=== PATIENT | female | born 1980 | race Caucasian/White ===

== ENCOUNTER 2016-11-27 02:03 | Emergency (ER) | payer OTHER ==
[2016-11-27 02:11] VITALS: RESP 16; TEMP 99
[2016-11-27] MEDS ORDERED: IBUPROFEN 200 MG TAB PO ONE (02:40)
--- NOTE | 2016-11-27 03:02 | EDPHY ---
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 Patient states that she was injured by a resident wall providing care there. She states the resident keep tear, cyst then stopped on her left foot. She then states that she fell onto the bed and striking her foot on the bed frame. She has pain in the dorsum of her foot. She is ambulating with discomfort. No prior injuries. She states she was also struck in the head and no loss of consciousness and denies headache at this time. No trunk pain or injury. There are no breaks in the skin. ROS: 10 point Review of Systems is negative except as noted in the HPI. Physical exam: Gen: Awake, Alert, No Distress HEENT: Atraumatic Eyes: PERRLA, EOMI Mouth: Moist mucosa Neck: Supple, no JVD Chest: nontender, lungs clear to auscultation Heart: S1, S2 normal, no murmur Abd: Soft, non-tender, no guarding Back: no CVA tenderness, no midline tenderness Ext: She has mild swelling with tenderness in the dorsum of her midfoot. There is no bony step-offs or crepitus. She has full range of motion of her ankle without pain. There is no erythema. Skin: no rash Neuro: CN II-XII intact, Sensation grossly intact, Strength 5/5 in bilateral upper and lower extremities ED Course: Left foot x-ray is negative per my interpretation. General Time Seen by Provider: 11/27/16 02:48 Initial Vital Signs: Initial Vital Signs Temperature (C) 37.2 C 11/27/16 02:08 Heart Rate 97 11/27/16 02:08 Respiratory Rate 16 11/27/16 02:08 Blood Pressure 157/107 H 11/27/16 02:08 O2 Sat (%) 95 11/27/16 02:08 O2 Delivery Mode Room Air Allergies/Adverse Reactions: fish derived [Fish derived] Allergy (Severe, Verified 11/27/16 02:07) Rash hydrocodone bitartrate [From Vicodin] Allergy (Severe, Verified 11/27/16 02:07) Hives Sulfa (Sulfonamide Antibiotics) Allergy (Severe, Verified 11/27/16 02:07) THROAT SWELLS codeine [Codeine] Allergy (Intermediate, Verified 11/27/16 02:07) Hives latex [Latex] Allergy (Intermediate, Verified 11/27/16 02:07) Rash Home Medications: Medication Instructions Recorded Albuterol 11/27/16 Ativan 11/27/16 Flexeril 11/27/16 Zoloft 100mg (*) 11/27/16 traZODone 11/27/16 Departure - Departure Disposition: Home, Routine, Self-Care Clinical Impression: Contusion of foot Condition: Good Instructions: Foot Contusion (ED) Additional Instructions: Follow up with workman's Comp in 2-3 days for re-evaluation. You may take ibuprofen or acetaminophen for pain. Referrals: IN STATE,. [Primary Care Provider] - As per Instructions Work Comp Ref/Restrictions [Outside] - As per Instructions
[2016-11-27 03:19] VITALS: BP 130/92; PULSE 85; O2SAT 97
--- NOTE | 2016-11-27 08:24 | DX ---
Left foot - 3 views dated November 27, 2016 Indication: Pain. Findings: The normally mineralized bones are anatomically aligned. No acute fracture. Minimal oste oarthritis is present at the first metatarsophalangeal joint. Moderate plantar spur. Impression: Negative. No acute fracture.
== END 2016-11-27 03:20 | disposition home or self-care (01) ==
DX: S90.32XA Contusion of left foot, initial encounter (principal); Z91.040 Latex allergy status; W06.XXXA Fall from bed, initial encounter; Y92.69 Other specified industrial and construction area as the place of occurrence of the external cause; Y99.0 Civilian activity done for income or pay; Y93.89 Activity, other specified

== ENCOUNTER 2017-09-18 12:16 | Emergency (ER) | payer OTHER ==
[2017-09-18 12:26] VITALS: TEMP 98.8
--- NOTE | 2017-09-18 13:45 | EDPHY ---
H & P Time Seen by Provider: 09/18/17 12:57 HPI/ROS: CHIEF COMPLAINT: Allergic reaction HISTORY OF PRESENT ILLNESS: Patient is a 37-year-old female who presents emergency department after having allergic reaction to the flu shot. She received a flu shot in the left arm while at work at [employer]. This occurred approximately 11:00 a.m.. Roughly 1 hour later she developed heat and swelling around the flu shot location. She then noticed a rash across her chest. She developed significant highs. She felt tingling in her lips and mild chest discomfort. She was treated at the nurse facility with Claritin and Benadryl. The patient has a personal EpiPen which 911 directed her to use. After receiving these medications patient felt much better. At this time she has no chest pain or shortness of breath. She states her rash is drastically improved. She has no facial swelling or throat swelling. REVIEW OF SYSTEMS: My complete review of systems is negative except as mentioned in the HPI. Past Medical/Surgical History: Includes asthma, anxiety Past surgical history: Tubal ligation Social history: The patient does not smoke Smoking Status: Never smoked Physical Exam: Vitals noted. 37.1, 128/96, 102, 18, 95% on room air GENERAL: Well-appearing, in no acute distress, alert. HEENT: Eyes normal to inspection, normal pharynx, no signs of dehydration. Uvula is midline. No swelling. NECK: No thyromegaly, no lymphadenopathy, supple. no stridor. RESPIRATORY: Clear to auscultation bilaterally, no rales, rhonchi or wheezing. Normal CVS: Regular rate and rhythm, no rubs, murmurs, or gallops. ABDOMEN: Soft, nontender, nondistended, no organomegaly. BACK: Normal to inspection, no CVA tenderness. SKIN: Normal color, no rash, warm, dry. No pallor. No notable rash EXTREMITIES: No pedal edema, no calf tenderness, no Homans sign or cords, no joint swelling. NEURO/PSYCH: Alert and oriented x3, normal mood and affect, normal motor sensory exam. Constitutional: Initial Vital Signs Temperature (C) 37.1 C 09/18/17 12:24 Heart Rate 102 H 09/18/17 12:24 Respiratory Rate 18 09/18/17 12:24 Blood Pressure 128/96 H 09/18/17 12:24 O2 Sat (%) 95 09/18/17 12:24 O2 Delivery Mode Room Air Allergies/Adverse Reactions: fish derived [Fish derived] Allergy (Severe, Verified 11/27/16 02:07) Rash hydrocodone bitartrate [From Vicodin] Allergy (Severe, Verified 11/27/16 02:07) Hives Sulfa (Sulfonamide Antibiotics) Allergy (Severe, Verified 11/27/16 02:07) THROAT SWELLS codeine [Codeine] Allergy (Intermediate, Verified 11/27/16 02:07) Hives latex [Latex] Allergy (Intermediate, Verified 11/27/16 02:07) Rash Nitrate Analogues Allergy (Verified 09/18/17 12:27) Home Medications: Medication Instructions Recorded Albuterol 11/27/16 Ativan 11/27/16 Zoloft 100mg (*) 11/27/16 Doxycycline Monohydrate 09/18/17 Prednisone 09/18/17 Zantac 09/18/17 predniSONE 20 mg PO DAILY 4 Days tab 09/18/17 Medical Decision Making ED Course/Re-evaluation: In the emergency department I discussed possible etiologies with the patient. I answered all her questions. She appears well at the time my exam. She is given prednisone 60 mg orally. She will be given a prescription of prednisone I rechecked the patient while here. She was stable throughout her stay. She had no developing rash or shortness of breath. No throat swelling. 14 40: Patient is doing well. She had no new complaints. Her airway was intact. No distress. She is given warnings prior to leaving. She was given a prescription of prednisone. She will return with worsening symptoms. Differential Diagnosis: My differential includes but is not limited to allergic reaction, vaccination reaction, bacteremia, sepsis, anaphylaxis - Data Points Medications Given: Discontinued Medications Prednisone (Prednisone) 60 mg PO EDNOW ONE Stop: 09/18/17 13:50 Last Admin: 09/18/17 14:25 Dose: 60 mg Departure - Departure Disposition: Home, Routine, Self-Care Clinical Impression: Allergic reaction Qualifiers: Encounter type: initial encounter Qualified Code(s): T78.40XA - Allergy, unspecified, initial encounter Condition: Good Instructions: General Allergic Reaction (ED) Additional Instructions: Return with worsening allergic reaction, rash, shortness of breath or any other concerns. Take entire course of prednisone. Referrals: Work Comp Referral [facility] [Outside] - 2-3 days, if not improved Prescriptions: predniSONE 20 mg PO DAILY 4 Days tab
[2017-09-18] MEDS ORDERED: predniSONE 20 MG TAB PO ONE (13:49)
[2017-09-18 15:01] VITALS: BP 114/80; PULSE 92; RESP 16; O2SAT 93
== END 2017-09-18 14:58 | disposition home or self-care (01) ==
LOC: EDUNIT#
DX: T88.1XXA Other complications following immunization, not elsewhere classified, initial encounter (principal); J45.909 Unspecified asthma, uncomplicated; Z91.040 Latex allergy status; Y82.8 Other medical devices associated with adverse incidents

== ENCOUNTER 2018-08-12 08:22 | Observation (INO) | payer OTHER ==
--- NOTE | 2018-08-12 07:02 | SOAPPROG ---
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 Insurance Med Worker's Comp: [employer] Employer Name : [employer] Case # : [id number] Case Injury Date : 06/06/2018 Prescription: MDIM - Member is eligible. 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 Allergies CODEINE: Hives LATEX: Hives (Moderate) Reviewed Medications albuterol sulfate 2.5 mg/3 mL (0.083 %) solution for nebulization 11/01/17 filled [employer] cyclobenzaprine 10 mg tablet 02/06/18 filled [employer] EpiPen 2-Michael 0.3 mg/0.3 mL injection, auto-injector 05/02/18 filled [employer] fluticasone 50 mcg/actuation nasal spray,suspension 04/26/18 filled [employer] LORazepam 1 mg tablet 04/25/18 filled [employer] raNITIdine 150 mg tablet 04/26/18 filled [employer] sertraline 100 mg tablet 04/25/18 filled [employer] Ventolin HFA 90 mcg/actuation aerosol inhaler 04/27/18 filled [employer] None recorded. 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 Past Pregnancies None recorded. Past Medical History Anxiety Disorder: Y Asthma: Y Depression: Y GERD/Reflux: Y Urinary Tract Infection: Y Are you still having monthly menstral periods: Y Metals or Jewelry Sensitivity: Y Have you had a blood transfusion since 1979: Y Screening None recorded. 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 - 06/13/18 -- Initial evaluation at [facility] -- sling application and NWB on RUE for 2 weeks, followed by the initiation of PT with partial improvement -06/24/18 -- right shoulder MRI ([facility]) -- possible type 2 SLAP tear -07/09/18 -- [place] [place] AC joint arthritis, rotator cuff tendinosis, NEGIN, SLAP tear -07/14/18 -- right shoulder GH joint injection with slight increase in symptoms following the injection She presents today for routine follow up after undergoing a right shoulder GH joint injection on 07/14/18 and reports a slight increase in her symptoms following the injection. ROS ROS as noted in the HPI Physical Exam Patient is a 38-year-old female. Bilateral shoulder examination Inspection/palpation: Right: Normal resting posture. Left: Normal resting posture Shoulder ROM (R / L / Normal) Forward flexion: 140 / 170 / 170 Abduction: 140 / 160 / 160 Extension: 30 / 40 / 40 External rotation: 50 / 80 / 80 Shoulder strength (R / L / Normal) Deltoid : 5/ 5 / 5 Biceps: 5/ 5 / 5 Shoulder sensory (R / L / Normal) Axillary: + / + / + Shoulder tests Stability tests OBriens: + / - / - Apprehension: + / - / - Relocation: + / - / - Jerk: - / - / - Rotator cuff tests Empty can: - / - / - Belly press: - / - / - Lift off : - / - / - Impingement tests Edie: - / - / - Neer: - / - / - Cross-arm adduction: - / - / - Biceps test Speeds: + / - / - Yergason supination: - / - / - Assessment / Plan This is a very pleasant 38 year old female with - 06/06/18 -- onset of right anterior shoulder pain 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 - 06/13/18 -- Initial evaluation at [facility] -- sling application and NWB on RUE for 2 weeks, followed by the initiation of PT with partial improvement -06/24/18 -- right shoulder MRI ([facility]) -- possible type 2 SLAP tear -07/09/18 -- right shoulder 3T MRI ([facility]) -- AC joint arthritis, rotator cuff tendinosis, NEGIN, SLAP tear -07/14/18 -- right shoulder GH joint injection with a slight increase in symptoms following the injection For right shoulder: -I have discussed with the patient the RBAC associated with both non-operative ( specifically, observation, NSAIDs, PT/HEP, injections) and operative ( specifically, right shoulder arthroscopy with SAD, DCE, labral debridement, LHB tenotomy and/or tenodesis, and rotator cuff debridement and/or repair) forms of treatment. -The patient fully understands the RBAC associated with both forms of treatment and wishes to proceed with operative intervention as outlined above - She has signed the informed consent form for surgery and surgery will be scheduled for the near future. 1. Glenoid labrum tear - Right S43.431A: Superior glenoid labrum lesion of right shoulder, initial encounter 2. Arthritis of acromioclavicular joint M13.811: Other specified arthritis, right shoulder 3. Biceps tendinitis - Right M75.21: Bicipital tendinitis, right shoulder * BICEPS TENDINITIS: EXERCISES 4. Inflammation of rotator cuff tendon M65.811: Other synovitis and tenosynovitis, right shoulder Return to Office None recorded. Encounter Sign-Off Encounter signed-off by Cosme Garcia M.D., 07/23/2018. 08/12/18 07:01 ICD10 Worksheet Patient Problems: Problems Problem Status Onset Unspecified rotator cuff tear or rupture of right shoulder, not specified as traumatic Acute - ICD10 Problem Qualifiers (1) Unspecified rotator cuff tear or rupture of right shoulder, not specified as traumatic
[2018-08-12] MEDS ORDERED: LIDOCAINE 1% 2 ML INJ ID PRN (08:26)
[2018-08-12] MEDS ORDERED: LR 1,000 ML IV ONE (08:26)
[2018-08-12] MEDS ORDERED: BUPIVACAINE 0.5% 30 ML SDV ONE (10:20)
[2018-08-12] MEDS ORDERED: LIDOCAINE 1% 300 MG/30 ML SDV ONE (10:20)
[2018-08-12] MEDS ORDERED: EPINEPHrine 30 MG/30 ML MDV (0.1 MG/0.1 ML) ONE (10:22)
[2018-08-12] MEDS ORDERED: MIDAZOLAM 2 MG/2 ML VIAL IVP ONE (10:40)
--- NOTE | 2018-08-12 10:44 | PDANEPAE ---
ANE Past Medical History - Cardiovascular History Hx Hypertension: No Hx Arrhythmias: No Hx Chest Pain: No Hx Coronary Artery / Peripheral Vascular Disease: No Hx CHF / Valvular Disease: No Hx Palpitations: No - Pulmonary History Hx COPD: No Hx Asthma/Reactive Airway Disease: Yes Hx Recent Upper Respiratory Infection: No Hx Oxygen in Use at Home: No Hx Sleep Apnea: No Sleep Apnea Screening Result - Last Documented: Negative Pulmonary History Comment: asthma - Endocrine History Hx Diabetes: No Obesity: severe - Renal History Hx Renal Disorders: No - Liver History Hx Hepatic Disorders: No - Neurological & Psychiatric Hx Hx Neurological and Psychiatric Disorders: Yes Neurological / Psychiatric History Comment: anxiety - Cancer History Hx Cancer: No - Congenital Disorder History Hx Congenital Disorders: No - GI History GERD: moderate Gastrointestinal History Comment: reflux - Other Health History Other Health History: wears glasses. injured shoulder at work - Chronic Pain History Chronic Pain: No - Surgical History Prior Surgeries: wisdom teeth extraction. tubal ligation ANE Review of Systems Review of Systems: - Exercise capacity METS (RN): 6 METS ANE Patient History - Allergies Allergies/Adverse Reactions: codeine [Codeine] Allergy (Verified 08/08/18 15:20) Hives fish derived [Fish derived] Allergy (Verified 08/08/18 15:20) Rash hydrocodone bitartrate [From Vicodin] Allergy (Verified 08/08/18 15:20) Hives latex [Latex] Allergy (Verified 08/08/18 15:20) Rash Nitrate Analogues Allergy (Verified 08/08/18 15:21) Rash Sulfa (Sulfonamide Antibiotics) Allergy (Verified 08/08/18 15:20) THROAT SWELLS flu vaccine Allergy (Uncoded 08/08/18 15:20) trouble breathing, rash, site swelling - Home Medications Home medications: home medication list seen and reviewed Home Medications: Albuterol 11/27/16 [Last Taken 08/09/18] Ativan 11/27/16 [Last Taken 08/12/18 07:00] Zoloft 100mg (*) 11/27/16 [Last Taken 08/11/18 22:00] Zantac 09/18/17 [Last Taken 08/12/18 07:00] Cyclobenzaprine 08/08/18 [Last Taken 08/11/18 22:00] traZODone 08/08/18 [Last Taken 08/11/18 22:00] Ultram 08/12/18 [Last Taken 08/11/18 22:00] - NPO status NPO Status: no food or drink >8 hours NPO Since - Liquids (Date): 08/12/18 NPO Since - Liquids (Time): 07:00 NPO Since - Solids (Date): 08/11/18 NPO Since - Solids (Time): 21:00 - Anes Hx Anes Hx: no prior problems - Smoking Hx Smoking Status: Never smoked - Family Anes Hx Family Hx Anesthesia Complications: none ANE Labs/Vital Signs - Vital Signs Blood Pressure: 140/73 Heart Rate: 84 Respiratory Rate: 18 O2 Sat (%): 96 Height: 151.13 cm Weight: 106.594 kg ANE Physical Exam - Airway Neck exam: FROM Mallampati Score: Class 3 Mouth exam: normal dental/mouth exam - Pulmonary Pulmonary: no respiratory distress, no rales or rhonchi, clear to auscultation - Cardiovascular Cardiovascular: regular rate and rhythym, systolic murmur (2/6 ANDREW RUSB.) - ASA Status ASA Status: III ANE Anesthesia Plan Anesthesia Plan: general endotracheal anesthesia
[2018-08-12] MEDS ORDERED: ceFAZolin 2 GM/DEXTROSE 100 ML IV ONE (10:52)
--- NOTE | 2018-08-12 10:52 | PDHPUP ---
History & Physical Update H&P update statement: This history and physical update is based on an assessment of the patient which was completed after admission or registration (within 24 hours), but prior to the surgery/procedure. H&P update: H&P reviewed & patient examined, no change in patient's condition since H&P completed
[2018-08-12] MEDS ORDERED: fentaNYL 250 MCG/5 ML INJ ONE (10:58)
[2018-08-12] MEDS ORDERED: PROPOFOL 200 MG/20 ML VIAL ONE (10:58)
[2018-08-12] MEDS ORDERED: KETAMINE 200 MG/20 ML VIAL ONE (10:58)
[2018-08-12] MEDS ORDERED: DEXAMETHASONE 4 MG/ML VIAL ONE ×2 (10:59)
[2018-08-12] MEDS ORDERED: ONDANSETRON 4 MG/2 ML VIAL ONE (10:59)
[2018-08-12] MEDS ORDERED: SUCCINYLCHOLINE CHLORIDE 200 MG/10 ML SYR IVP ONE (10:59)
[2018-08-12] MEDS ORDERED: LIDOCAINE 2% 2 ML INJ ONE (10:59)
[2018-08-12] MEDS ORDERED: KETOROLAC 30 MG/1 ML SDV ONE (10:59)
[2018-08-12] MEDS ORDERED: PHENYLEPHRINE HCL 100 MCG/ML SYR ONE ×2 (11:28→12:16)
[2018-08-12] MEDS ORDERED: oxyCODONE IR 5 MG TAB PO PRN (12:33)
[2018-08-12] MEDS ORDERED: ACETAMINOPHEN 500 MG TAB PO PRN (12:33)
[2018-08-12] MEDS ORDERED: ALBUTEROL 3 ML DEYVIAL IH PRN (12:33)
[2018-08-12] MEDS ORDERED: NALOXONE HCL 0.4 MG/ML INJ IVP PRN ×2 (12:33)
[2018-08-12] MEDS ORDERED: ONDANSETRON 4 MG/2 ML VIAL IVP PRN (12:33)
[2018-08-12] MEDS ORDERED: DIAZEPAM 5 MG/ML 1 ML SYR IVP PRN (12:33)
[2018-08-12] MEDS ORDERED: LR 500 ML IV PRN (12:33)
[2018-08-12] MEDS ORDERED: fentaNYL 100 MCG/2 ML INJ IVP PRN (12:33)
[2018-08-12] MEDS ORDERED: PROMETHAZINE HCL 25 MG/ML INJ IVP PRN (12:33)
--- NOTE | 2018-08-12 13:28 | POSTANESTH ---
Post Anesthetic Evaluation Cardiovascular Status: Other, See Comment (Slightly tachycardic on arrival (110- 115); will observe for now.) Respiratory Status: Similar to Pre-op Cond., Other, See Comment (Obstructive breathing.) Level of Consciousness/Mental Status: Can Participate in Eval, Moderately Sleepy Pain Control: Adequate, Prn Tx Ordered Nausea/Vomiting Control: Adequate, Prn Tx Ordered Complications Possibly Related to Anesthesia: None Noted
[2018-08-12] MEDS ORDERED: ALBUTEROL 3 ML DEYVIAL ONE (14:39)
--- NOTE | 2018-08-12 17:49 | CPEKG ---
Test Reason : OPEN Blood Pressure : / mmHG Vent. Rate : 078 BPM Atrial Rate : 079 BPM P-R Int : 149 ms QRS Dur : 100 ms QT Int : 416 ms P-R-T Axes : 056 027 048 degrees QTc Int : 474 ms Sinus rhythm Confirmed by Reno Solorio ([id number]) on 08/12/2018 5:49:07 PM Referred By: Confirmed By:Reno Solorio
[2018-08-12] MEDS: HYDROmorphone HCL 0.5 MG/0.5 ML SYR IVP PRN (18:03)
[2018-08-12] MEDS: ACETAMINOPHEN 325 MG TAB PO PRN (18:04)
[2018-08-12] MEDS ORDERED: ALBUTEROL 60 PUFFS/8 GM MDI IH PRN (18:41)
[2018-08-12] MEDS: oxyCODONE IR 5 MG TAB PO PRN (20:31)
[2018-08-12] MEDS ORDERED: SERTRALINE HCL 100 MG TAB PO SCH (21:00)
[2018-08-12] MEDS ORDERED: FAMOTIDINE 20 MG TAB PO SCH (21:00)
[2018-08-12] MEDS ORDERED: traZODone 50 MG TAB PO SCH (21:00)
[2018-08-13] MEDS: oxyCODONE IR 5 MG TAB PO PRN ×5 (00:17→13:27)
[2018-08-13] MEDS: HYDROmorphone HCL 0.5 MG/0.5 ML SYR IVP PRN (01:56)
--- NOTE | 2018-08-13 03:49 | GOP ---
PATIENT: RAZA MOTA DATE OF SERVICE: 08/12/18 PATIENT DATE OF : 1980 SURGEON: Cosme Valdez M.D. CLOSING MANAGER: Wendie Peñaloza PA-C Mrs. Deluca assistance was medically necessary for patient positioning and the retraction of vital structures. ANESTHESIA: General / regional anesthesia PRE-OPERATIVE DIAGNOSES: Right shoulder subacromial impingement (ICD-10 code M75.51 -- right shoulder bursitis) Right shoulder acromioclavicular joint arthritis (ICD-10 code M13.111 -- right shoulder acromioclavicular joint arthritis) Right shoulder SLAP tear (ICD-10 code S43.431D -- right shoulder superior glenoid labrum lesion) Right shoulder biceps tendinitis (ICD-10 code M75.21 -- right shoulder bicipital tendinitis) POST-OPERATIVE DIAGNOSES: Right shoulder subacromial impingement (ICD-10 code M75.51 -- right shoulder bursitis) Right shoulder acromioclavicular joint arthritis (ICD-10 code M13.111 -- right shoulder acromioclavicular joint arthritis) Right shoulder SLAP tear (ICD-10 code S43.431D -- right shoulder superior glenoid labrum lesion) Right shoulder biceps tendinitis (ICD-10 code M75.21 -- right shoulder bicipital tendinitis) OPERATIVE PROCEDURES: CPT code 15384 - Right shoulder arthroscopic subacromial decompression CPT code 04795 - Right shoulder arthroscopic debridement, extensive CPT code 85480 - Right shoulder arthroscopic distal clavicle excision CPT code 28510 - Right shoulder long head of biceps tenotomy CPT code 37651 Right shoulder subpectoral biceps tenodesis EBL: 4cc COMPLICATIONS: None IMPLANTS: One Arthrex proximal biceps tenodesis button with #2 Fiber Wire BRIEF CLINICAL NOTE: This is a very pleasant 38 year old female with a significant history for right shoulder subacromial impingement, acromioclavicular joint arthritis, a labral tear, and long head of biceps tendinitis. As such, I have discussed the risks, benefits, alternatives, and complications associated with both non-operative (specifically, observation, PT , activity modifications, NSAIDs, injection) and operative (specifically, right shoulder arthroscopy with subacromial decompression, distal clavicle excision, labral debridement, and long head of biceps tenotomy and/or tenodesis) forms of treatment. The patient fully understands the risks, benefits, alternatives, and complications associated with both forms of treatment and wishes to proceed with operative intervention as outlined above. The patient has signed the informed consent form for surgery. OPERATIVE NOTE: On the day of surgery, all of the patients questions were answered. The patient was then transferred from the pre-operative area into the operating room and a formal, Time-Out procedure was performed. The patient was identified by name, medical record number, social security number, and date of . In addition, the patients right upper extremity was identified as the correct portion of the patients body for surgery with the patients right shoulder being identified as the correct portion of that extremity for surgery. The anesthesia team administered pre-operative antibiotics for prophylaxis. The patient was then transferred to the operating room table and placed in the beach chair position while padding all bony prominences. The extremity was then prepped and draped in the normal sterile fashion. A sterile marking pen was then utilized to roberto out standard posterior, lateral , and anterior arthroscopic portal incisions. An 18-gauge spinal needle was utilized to localize the glenohumeral joint and the joint was insufflated with 60cc of a 50:50 mixture of 1% lidocaine with 1:200,000 components of epinephrine and normal saline. Following this, an 11-blade was utilized to make the posterior portal incision. The blunt obturator and arthroscopic cannula were then advanced through the posterior portal incision into the glenohumeral joint. The arthroscope was inserted and the shoulder was brought into external rotation. An 18-gauge spinal needle was utilized to create the anterior portal with outside-in technique. A medium-sized Arthrex corkscrew cannula was then inserted through the anterior portal incision. A diagnostic arthroscopy was performed in the glenohumeral space. The following structures were identified and examined with the following findings: Glenohumeral diagnostic arthroscopy Glenoid: intact Humeral head: intact Glenoid labrum Anterior labrum: degenerative fraying Superior labrum: degenerative fraying and tear at biceps root Posterior labrum: intact Inferior labrum: intact Biceps tendon: high-grade partial tearing Glenohumeral ligaments: SGHL: intact MGHL: intact AIGHL: intact PIGHL: intact Undersurface of rotator cuff: Subscapularis: intact Supraspinatus: intact Infraspinatus: intact The 4.0mm aggressive cutter was then inserted through the anterior portal and an extensive debridement was performed within the glenohumeral joint. The cautery wand was inserted through the anterior portal and the long head of the biceps tendon was released off of the supraglenoid tubercle (long head of biceps tenotomy). The arthroscope was then removed from the glenohumeral joint and the posterior cannula was re-directed into the subacromial space. The arthroscope was then re -inserted into the posterior cannula. An 18-gauge spinal needle was used to create a straight lateral portal with outside-in technique. A large Arthrex corkscrew cannula was inserted through the lateral portal incision. The 4.0mm aggressive cutter and the cautery wand were passed through the lateral portal to excise the subacromial-subdeltoid bursa. A diagnostic arthroscopy was performed in the subacromial space. The following structures were identified and examined with the following findings: Subacromial space diagnostic arthroscopy Subacromial / subdeltoid bursa: hypertrophic and inflamed Acromion: undersurface spurring Coracoacromial ligament: intact Acromioclavicular joint: arthritis and undersurface spurring Bursal surface of rotator cuff muscles: Supraspinatus: intact Infraspinatus: intact The 4.0mm barrel marisol was utilized to perform both an acromioplasty as well as an arthroscopic distal clavicle excision. The arthroscope and all instruments were then removed from the joint and attention was turned to the left proximal arm. A sterile marking pen was utilized to roberto out a 2cm longitudinal incision along the inferior border of the pectoralis major tendon in-line with the bicipital groove. A #15 blade was then used to incise the skin and meticulous hemostasis was obtained in the subcutaneous plane with bovie cautery. Blunt dissection was then performed to expose the long head of the biceps tendon. The tendon was then pulled out through the incision and shortened with straight tenotomy scissors. A #2 Fiber Wire suture was then passed through the tendon in a running and locking fashion with both tails exiting distally. The 3.2mm drill pin was then used to drill a bi-cortical tunnel through the proximal humerus. The two Fiberwire tails which had been threaded through the biceps tendon were then passed through the biceps button and the biceps button was inserted into the hole in the humerus. The button was flipped on the far side of the far cortex. The Firber Wire tails were then tightened to reduce the biceps tendon to the anterior surface of the humerus. The tails were then threaded through the biceps tendon one more time with a free needle and tied to each other. All wounds were copiously irrigated with sterile normal saline. The subcutaneous plane was re-approximated with 3-0 vicryl sutures and the skin was re-approximated with 4-0 moncryl. The skin was cleaned with sterile normal saline and dried. Dermabond was applied to all of the incisions followed by a Xeroform gauze dressing, a dry sterile dressing, and an occlusive Tegaderm dressing. The arm was then placed into a sling and swathe. The patient was reversed from anesthesia and transferred from the operating room table onto the post-operative gurney and transferred from the operating room to the PACU in stable condition. POST-OPERATIVE PLAN: The patient will remain in the current dressing and sling for the next 2 weeks. The patient will follow-up in 2 weeks for a wound check and initiation of gentle forearm, elbow, and shoulder ROM exercises. /[id number]/MODL MTDD
--- NOTE | 2018-08-13 08:30 | SOAPPROG ---
SOAP Progress Note Assessment/Plan: S: This is a very pleasant 38 year old female who is 1 day s/p right shoulder arthroscopic ASD, DCE, and SPBT by Dr. Valdez. She reports that she continues to have some right shoulder pain. She reports some dyspnea on exertion and dizziness while walking to the bathroom last night. She denies any current chest pain, shortness of breath, or dizziness. She notes that she usually sleeps on 3-4 pillows at home. She has never discussed a sleep study with her PCP in the past. She uses an inhaler for asthma as needed at home. She notes some discomfort from her sling. O: Gen: Alert, oriented, in no acute distress Cardiopulmonary: No visible labored breathing Neuro: A+O x 3 Vascular: Skin appears warm. Musculoskeletal: Right shoulder wound is C/D/I. Sling intact. A/P: This is a very pleasant 38 year old female who is 1 day s/p right shoulder arthroscopic ASD, DCE, and SPBT by Dr. Valdez. -Nursing to please trial patient off of NC with close monitoring of oxygen levels. Call our office with any worsening changes. -Use narcotics judiciously. -Keep right shoulder wound C/D/I. -RUE non weight bearing. Stay in sling. May move elbow, wrist, and fingers. Encourage mobilization out of bed with assistance. -May discharge home today if breathing improves on room air. -FU in clinic in 2 weeks -FU with PCP Dr. Caballero within the next 3 days to discuss outpatient sleep study Wendie Peñaloza PA-C 08/13/18 08:21 Objective: Vital Signs Temp Pulse Resp BP Pulse Ox 36.7 C 83 16 122/65 H 98 08/13/18 07:22 08/13/18 07:22 08/13/18 07:22 08/13/18 07:22 08/13/18 07:22 08/12/18 08/13/18 08/14/18 05:59 05:59 05:59 Intake Total 1830 Output Total 820 Balance 1010 - Pending Discharge Pending Discharge Within 24 Hours: Yes Pending Discharge Date: 08/14/18 Pending Discharge Time: 11:00 ICD10 Worksheet Patient Problems: Problems Problem Status Onset Unspecified rotator cuff tear or rupture of right shoulder, not specified as traumatic Acute - ICD10 Problem Qualifiers (1) Unspecified rotator cuff tear or rupture of right shoulder, not specified as traumatic
[2018-08-13] MEDS: ACETAMINOPHEN 325 MG TAB PO PRN (09:05)
[2018-08-13 11:24] VITALS: BP 97/50
[2018-08-13] MEDS ORDERED: PNEUMOCOCCAL 0.5ML VACCINE VIAL IM ONE (12:02)
--- NOTE | 2018-08-13 12:08 | ASMTLACE ---
LACE Length of stay for Answers: 2 days current admission Acuity / Level of Answers: No Care: Did the patient have an inpatient admission? Comorbidities - select Answers: Other Notes: Asthma all that apply # of Emergency department Answers: 0 visits in the last 6 months Social determinants Answers: Mental health diagnosis (anxiety, depression, pers onality disorders, etc.) Score: 6 Date Signed: 08/13/2018 12:08 PM Electronically Signed By:BHAVNA Flood
--- NOTE | 2018-08-13 14:50 | ASMTCMCOM ---
CM Note CM Note Notes: Pt s/p shoulder surgery, having post-op pain and needing respiratory monitoring. Pt medically stable for d/c, no CM d/c needs identified. No therapy evals ordered. Date Signed: 08/13/2018 02:49 PM Electronically Signed By:BHAVNA Flood
== END 2018-08-13 14:41 | disposition home or self-care (01) ==
LOC: FSGY 08:22 → UNDOADMOB 16:00 → F3N 16:00
PROVIDERS: ADMIT Orthopaedic Surgery Hand Surgery; ATTEND Orthopaedic Surgery Hand Surgery
DX: R06.09 Other forms of dyspnea (principal); S43.431A Superior glenoid labrum lesion of right shoulder, initial encounter; X50.0XXA Overexertion from strenuous movement or load, initial encounter; M75.21 Bicipital tendinitis, right shoulder; M13.811 Other specified arthritis, right shoulder; M65.811 Other synovitis and tenosynovitis, right shoulder; Y93.F2 Activity, caregiving, lifting; Y99.0 Civilian activity done for income or pay; F41.8 Other specified anxiety disorders; K21.9 Gastro-esophageal reflux disease without esophagitis; Z23 Encounter for immunization; J45.909 Unspecified asthma, uncomplicated
CPT/HCPCS: 23430; 29823; 29824; 29826; 90471; 93005; G0378; C1713; G0009; J0171; J0330; J0690; J1100; J1170; J1885; J2250; J2270; J2370; J2405; J2704; J3010; J7613